=== PATIENT | female | born 1970 | race Caucasian/White ===

== ENCOUNTER → 2018-07-19 17:43 | Outpatient (CLI) | payer OTHER, SELFPAY | PROVIDERS: Family Provider Family Medicine; PCP Family Medicine; Referring Provider Family Medicine; Visit Provider Family Medicine | DX: N39.0 Urinary tract infection, site not specified (principal) | CPT/HCPCS: 87086; 87088; 87186 ==

== ENCOUNTER → 2019-02-11 08:25 | Outpatient (CLI) | payer OTHER, SELFPAY ==
--- NOTE | 2019-02-11 08:28 | BI_ITS ---
MAMMOGRAPHY - BILATERAL SCREENING REASON FOR EXAM: Female, 48 years old. Routine annual screening examination. PERTINENT HISTORY: Non-contributory. TECHNIQUE: Digital bilateral breast dakota (3D mammographic acquisition) in the CC and MLO projections. 2-D mediolateral oblique (MLO) and craniocaudad (CC) views of both breasts were obtained. CAD: Full Field Digital Mammography with Computer Added Detection was performed. COMPARISON: Comparison is made with prior outside examination dated August 31, 2017. FINDINGS: Breast Composition: The breasts are extremely dense, which lowers the sensitivity of mammography. There are no dominant masses or suspicious calcifications. No other significant abnormalities are identified. There has been no significant change since the prior study. BI/SCREEN MAMM (CAD) W/DAKOTA BILAT IMPRESSION: Stable bilateral screening mammogram. Yearly follow-up mammogram recommended. (A) ASSESSMENT CATEGORY: BIRADS Category 1: Negative. A letter regarding these results will be sent to the patient by the facility within 30 days. Approximately 10% of breast cancers are not detected by mammography. A normal mammogram should not delay biopsy of a clinically suspicious abnormality. [id number] Electronically Signed: Luis Eduardo Guy, at 11:19 EDT , Service support ,
[2019-02-14 15:38] LABS: HPV APTIMA, High Risk Negative (Negative)
== END ==
PROVIDERS: Family Provider Family Medicine; PCP Family Medicine; Referring Provider Nurse Practitioner Women's Health; Visit Provider Nurse Practitioner Women's Health
DX: Z12.31 Encounter for screening mammogram for malignant neoplasm of breast (principal); Z12.4 Encounter for screening for malignant neoplasm of cervix
CPT/HCPCS: 77063; 77067; 87624; 88175; G0145

== ENCOUNTER → 2021-01-03 10:31 | Outpatient (CLI) | payer OTHER, SELFPAY ==
[2021-01-03 10:45] LABS: Mucous, Urine 0 SEEN /hpf (<or=2+)
[2021-01-03 10:48] LABS: Color, Urine Red (Yellow); Glucose, Dipstick Normal (Normal); Ketone-Dipstick Negative (Negative); Leukocyte Esterase-Dipstick 100 /ul (Negative); Nitrite-Dipstick Negative (Negative); Occult Blood-Urine 250 /ul (Negative); Protein-Dipstick 100 mg/dl (Negative); Specific Gravity, Urine 1.015 (1.002-1.030); Urine Bilirubin Dipstick Negative (Negative); Urine Clarity Clear (Clear); Urine Urobilinogen Normal (Normal)
[2021-01-03 11:01] LABS: Bacteria 1+ /hpf (None Seen); Red Blood Cells-Urine > 100 SEEN /hpf (0-5); Squamous Epithelial Cells - UA 0-5 SEEN /hpf (5-10); White Blood Cells 5-10 SEEN /hpf (0-5)
== END ==
PROVIDERS: PCP Family Medicine; Referring Provider Physician Assistant Surgical; Visit Provider Physician Assistant Surgical
DX: N39.0 Urinary tract infection, site not specified (principal)
CPT/HCPCS: 81001; 87086

== ENCOUNTER → 2022-02-16 | Outpatient (CLI) | payer BC, SELFPAY ==
[2022-02-16 12:24] LABS: Anion Gap 8 (5-15); BUN 13 mg/dL (7-18); BUN/Creat Ratio 15.4 RATIO (10-20); Calcium,Total 9.5 mg/dL (8.5-10.1); Chloride 104 mmol/L (98-107); Cholesterol 164 mg/dL (200); Creatinine, Serum 0.84 mg/dL (0.55-1.02); EST Glomerular Filtration Rate 75 mL/min (>60); Est Glom Filt Rate - Afr Amer 91 mL/min (>60); Glucose 83 mg/dL (74-106); High Density Lipoprotein 99 mg/dL; Potassium 3.7 mmol/L (3.5-5.1); Sodium Level 140 mmol/L (136-145); Triglycerides 39 mg/dL; Very Low Density Lipoprotein 8 mg/dL (5-40)
== END | disposition home or self-care (01) ==
LOC: MFPLAB 09:42
PROVIDERS: PCP Nurse Practitioner Family; Referring Provider Nurse Practitioner Family; Visit Provider Nurse Practitioner Family
DX: Z13.1 Encounter for screening for diabetes mellitus (principal); Z13.220 Encounter for screening for lipoid disorders
CPT/HCPCS: 36415; 80048; 80061

== ENCOUNTER → 2022-02-22 | Outpatient (CLI) | payer BC, SELFPAY ==
--- NOTE | 2022-02-22 12:29 | BI_ITS ---
MAMMOGRAPHY - BILATERAL SCREENING REASON FOR EXAM: Female, 51 years old. Routine annual screening examination. PERTINENT HISTORY: Non-contributory. TECHNIQUE: Digital bilateral breast dakota (3D mammographic acquisition) in the CC and MLO projections. 2-D mediolateral oblique (MLO) and craniocaudad (CC) views of both breasts were obtained. CAD: Full Field Digital Mammography with Computer Added Detection was performed. COMPARISON: Comparison is made with prior study dated 02/11/2019. FINDINGS: Breast Composition: The breasts are extremely dense, which lowers the sensitivity of mammography. There are no dominant masses or suspicious calcifications. No other significant abnormalities are identified. There has been no significant change since the prior study. BI/SCRN MAMM (CAD)W/DAKOTA BILAT IMPRESSION: Stable bilateral screening mammogram. Yearly follow-up mammogram recommended. (A) ASSESSMENT CATEGORY: BIRADS Category 1: Negative. A letter regarding these results will be sent to the patient by the facility within 30 days. Approximately 10% of breast cancers are not detected by mammography. A normal mammogram should not delay biopsy of a clinically suspicious abnormality. [id number] Electronically Signed: Luis Eduardo Guy MD at 13:31 EDT ,
== END | disposition home or self-care (01) ==
LOC: OPBI 12:28
PROVIDERS: PCP Nurse Practitioner Family; Visit Provider Nurse Practitioner Women's Health
DX: Z12.31 Encounter for screening mammogram for malignant neoplasm of breast (principal)
CPT/HCPCS: 77063; 77067

== ENCOUNTER → 2022-03-15 | Outpatient (CLI) | payer BC, SELFPAY ==
[2022-03-15 18:30] LABS: Thyroid Stim Hormone (TSH) 2.17 uIU/mL (0.358-3.74)
== END | disposition home or self-care (01) ==
LOC: MFPLAB 16:38
PROVIDERS: PCP Family Medicine; Referring Provider Family Medicine; Visit Provider Family Medicine
DX: E03.9 Hypothyroidism, unspecified (principal)
CPT/HCPCS: 36415; 84443

== ENCOUNTER 2022-03-17 05:52 | Day surgery (SDC) | payer BC, SELFPAY ==
[2022-03-17] VITALS (10 sets, daily range): BP systolic 89–108; BP diastolic 52–76; PULSE 51–60; RESP 16; TEMP 36–36.7; O2SAT 4–100; BMI 10.3
--- NOTE | 2022-03-17 06:17 | HP.PCM_ITS ---
[facility] - General General Date of Service: 03/17/22 Chief Complaint: Screening for intestinal cancer [facility] Narrative CHANTAL TRACY, is a 51 F who presents who presents for screening colonoscopy today. She has not had a previous 1. She has no chronic health conditions. She presents via open access. [facility] Medical History (Updated 03/14/22 @ 13:00 by Ivania Bennett) Non-smoker Post-menopausal Thyroid disease Wears glasses Home Medications biotin 5 mg capsule 5 mg PO QDAY 10/17/17 [History Last Taken Unknown] multivitamin 1 cap PO QAM 10/17/17 [History Last Taken Unknown] ascorbate calcium (vitamin C) 500 mg tablet 500 mg PO DAILY 02/11/19 [History Last Taken Unknown] cholecalciferol (vitamin D3) 25 mcg (1,000 unit) capsule 1,000 unit PO DAILY 02/11/19 [History Last Taken Unknown] cyclosporine 0.05 % eye drops in a dropperette (Restasis) 1 drp ophthalmic (eye) Q12H 02/11/19 [History Last Taken Unknown] artificial tears(hypromellose) 0.3 % eye gel (Systane Gel) 1 drp ophthalmic (eye) Q4H PRN Dry Eyes 02/16/22 [History Last Taken Unknown] calcium carbonate 500 mg calcium (1,250 mg) chewable tablet (Calcium 500) 500 mg PO DAILY 02/16/22 [History Last Taken Unknown] hydroeyes 1 ea PO DAILY 02/16/22 [History Last Taken Unknown] polyethylene glycol 400 0.25 % eye gel drops (Blink Gel Tears) 1 drp ophthalmic (eye) DAILY 02/16/22 [History Last Taken Unknown] Allergy/AdvReac Type Severity Reaction Status Date / Time No Known Allergies Allergy Verified 02/16/22 13:38 Family History (Updated 02/16/22 @ 13:41 by Diana Morrison) Father Diabetes CVA (cerebral vascular accident) Grandmother Diabetes Surgical History (Updated 03/14/22 @ 13:00 by Ivania Bennett) H/O thyroidectomy History of cataract surgery Social History Smoking Status: Never smoker alcohol intake: never substance use type: does not use caffeine: No what type of physical activity do you participate in: none seatbelt use: always do you feel safe at home: Yes additional social history: - Marjan Patient is at home ROS Constitutional Constitutional: Reports systems reviewed and no addt'l complaints, except as documented Cardiovascular Cardiovascular: Denies chest pain Respiratory/Chest Respiratory/Chest: Denies shortness of breath at rest Gastrointestinal Gastrointestinal: Denies abdominal pain, change in bowel habits, hematochezia or melena Physical Exam Const alert, oriented x3 and no apparent distress General Appearance: cooperative and comfortable Eyes General Eye: normal appearance of both eyes Neck General: normal visual inspection Chest inspection of chest normal Resp Effort and Inspection: able to speak in complete sentences and symmetric chest movement Auscultation: clear to auscultation bilaterally Cardio regular rate and regular rhythm GI soft to palpation, non-tender and non-distended Extremity no calf tenderness Neuro oriented x3 Psych thought process normal Assessment & Plan Assessment/Plan (1) Encounter for screening for malignant neoplasm of colon: PLAN: Plan I recommended the patient a screening colonoscopy with possible biopsy or polypectomy as indicated. She is aware of the technique, benefit, risks, alternatives. She has had an opportunity to ask and have questions answered. As noted she presents via open access. We will proceed as noted. Lorenzo Spears M.D., F.A.C.S.
[2022-03-17] MEDS: Lactated Ringers 1,000 ML 15 ML IV (06:45)
[2022-03-17] MEDS: Midazolam 5 MG/ML Syringe (07:25)
--- NOTE | 2022-03-17 07:39 | OP.CCLET_ITS ---
03/17/2022 Mario Alberto Donohue Re : Colonoscopy procedure for Darlyn Farmer Dear Emile This procedure was performed on Thursday, March 17, 2022. My impressions and recommendations are as follows: Impressions : - The entire examined colon is normal. - No specimens collected. Recommendations : - Discharge patient to home. - Resume previous diet. - Continue present medications. - Repeat colonoscopy in 10 years for screening purposes. My findings are described in the full procedure note, which is enclosed. If I can be of further assistance, please feel free to contact me at Doctor phone number(s): Work: . Sincerely, Lorenzo Spears MD 03/17/2022 7:38:29 AM This report has been signed electronically.
--- NOTE | 2022-03-17 07:39 | OP.COLON_ITS ---
Patient Name: Darlyn Farmer Procedure Date: 03/17/2022 7:10 AM Date of : 1970 Age: 51 Procedure: Colonoscopy Indications: Screening for colorectal malignant neoplasm Providers: Lorenzo Spears MD Medicines: Midazolam 2.5 mg IV, Meperidine 75 mg IV Patient Profile: Last Colonoscopy: none. The patient's first colonoscopy is today. Complications: No immediate complications. Procedure: Pre-Anesthesia Assessment: - Prior to the procedure, a History and Physical was performed, and patient medications and allergies were reviewed. The patient's tolerance of previous anesthesia was also reviewed. The risks and benefits of the procedure and the sedation options and risks were discussed with the patient. All questions were answered, and informed consent was obtained. Prior Anticoagulants: The patient has taken no previous anticoagulant or antiplatelet agents. ASA Grade Assessment: II - A patient with mild systemic disease. After reviewing the risks and benefits, the patient was deemed in satisfactory condition to undergo the procedure. After I obtained informed consent, the scope was passed under direct vision. Throughout the procedure, the patient's blood pressure, pulse, and oxygen saturations were monitored continuously. The colonoscope was introduced through the anus and advanced to the cecum, identified by appendiceal orifice and ileocecal valve. The colonoscopy was performed without difficulty. The patient tolerated the procedure well. The quality of the bowel preparation was good. The ileocecal valve and the appendiceal orifice were photographed. Moderate Sedation: Moderate (conscious) sedation was personally administered by the endoscopist. The following parameters were monitored: oxygen saturation, heart rate, blood pressure, and response to care. Total physician intraservice time was 15 minutes. Scope In: 7:24:52 AM Scope Withdrawal Time 0 hours 6 minutes 41 seconds Scope Out: 7:34:49 AM Total Procedure Duration Time 0 hours 9 minutes 57 seconds Findings: The perianal and digital rectal examinations were normal. The colon (entire examined portion) appeared normal. Impression: - The entire examined colon is normal. - No specimens collected. Recommendation: - Discharge patient to home. - Resume previous diet. - Continue present medications. - Repeat colonoscopy in 10 years for screening purposes. Procedure Code(s): --- Professional --- 51082, Colonoscopy, flexible; diagnostic, including collection of specimen(s) by brushing or washing, when performed (separate procedure) 09373, 59, Moderate sedation services provided by the same physician or other qualified health floor care technician performing the diagnostic or therapeutic service that the sedation supports, requiring the presence of an independent trained observer to assist in the monitoring of the patient's level of consciousness and physiological status; initial 15 minutes of intraservice time, patient age 5 years or older Diagnosis Code(s): --- Professional --- Z12.11, Encounter for screening for malignant neoplasm of colon CPT copyright 2017 [employer]. All rights reserved. The codes documented in this report are preliminary and upon technical account representative review may be revised to meet current compliance requirements. Lorenzo Spears MD 03/17/2022 7:38:29 AM This report has been signed electronically. Number of Addenda: 0 Note Initiated On: 03/17/2022 7:10 AM
== END 2022-03-17 08:19 | disposition home or self-care (01) ==
LOC: EN 05:59 → AC 06:00
PROVIDERS: PCP Family Medicine; Referring Provider Family Medicine; Visit Provider Surgery
PROC: 0DJD8ZZ Inspection of Lower Intestinal Tract, Via Natural or Artificial Opening Endoscopic (ICD-10-PCS; CPT 45378; principal; 2022-03-17 06:55)
DX: Z12.11 Encounter for screening for malignant neoplasm of colon (principal)
CPT/HCPCS: 45378; 99152; 99153; J7120

== ENCOUNTER → 2023-07-24 | Outpatient (CLI) | payer BC, SELFPAY ==
--- NOTE | 2023-07-24 08:28 | BI_ITS ---
MAMMOGRAPHY - BILATERAL SCREENING REASON FOR EXAM: Female, 53 years old. Routine annual screening examination. PERTINENT HISTORY: Non-contributory. TECHNIQUE: Digital bilateral breast dakota (3D mammographic acquisition) in the CC and MLO projections. 2-D mediolateral oblique (MLO) and craniocaudad (CC) views of both breasts were obtained. CAD: Full Field Digital Mammography with Computer Added Detection was performed. COMPARISON: Comparison is made with prior study dated February 22, 2022 and February 11, 2019. FINDINGS: Breast Composition: The breasts are extremely dense, which lowers the sensitivity of mammography. There are no dominant masses or suspicious calcifications. No other significant abnormalities are identified. There has been no significant change since the prior study. BI/SCRN MAMM (CAD)W/DAKOTA BILAT IMPRESSION: Stable bilateral screening mammogram. Yearly follow-up mammogram recommended. (A) ASSESSMENT CATEGORY: BIRADS Category 1: Negative. A letter regarding these results will be sent to the patient by the facility within 30 days. Approximately 10% of breast cancers are not detected by mammography. A normal mammogram should not delay biopsy of a clinically suspicious abnormality. [id number] Electronically Signed: Luis Eduardo Guy MD at 9:46 EDT ,
== END | disposition home or self-care (01) ==
LOC: OPBI 08:27
PROVIDERS: PCP Family Medicine; Referring Provider Nurse Practitioner Women's Health; Visit Provider Nurse Practitioner Women's Health
DX: Z12.31 Encounter for screening mammogram for malignant neoplasm of breast (principal)
CPT/HCPCS: 77063; 77067

== ENCOUNTER → 2023-08-08 | Outpatient (CLI) | payer BC, SELFPAY ==
[2023-08-08 17:40] LABS: Absolute Lymphocyte Count 2.76 X10^3/uL (0.83-4.51); Absolute Neutrophil Count 3.2 X10^3/uL (2.0-7.7); Basophil# 0.07 X10^3/uL; Basophil% 1.1 % (0-1); Eosinophil# 0.18 X10^3/uL; Eosinophils% 2.7 % (0-5); Lymphocyte # 2.76 X10^3/ul (0.83-4.51); Lymphocyte % 41.8 % (19-41); Mean Corp Hgb Conc 31.6 g/dL (32-36); Mean Corpuscular Hgb 28.1 pg (27.0-32.0); Mean Platelet Vol. 10.5 fl (6.2-12.0); Monocyte# 0.34 X10^3/uL; Monocyte% 5.2 % (0-10); NRBC Flagged by Analyzer 0 % (0-5); Neutrophil # 3.23 X10^3/uL (2.7-7.7); Neutrophil % 48.9 % (47-70); Platelet Count 280 K/mm3 (150-450); RBC Distribution Width CV 13.3 % (11.6-14.6); RBC Distribution Width SD 43.9 fl (35.1-43.9); Red Blood Count 4.27 M/mm3 (4.2-5.4); White Blood Count 6.6 K/mm3 (4.4-11.0)
[2023-08-08 17:57] LABS: ALB/GLOB Ratio 1.3 RATIO (0.9-2.4); AST(SGOT) 13 U/L (15-37); Alanine Aminotransfer ALT/SGPT 17 U/L (13-56); Alkaline Phosphatase 60 U/L (45-117); Anion Gap 5 (5-15); BUN 11 mg/dL (7-18); BUN/Creat Ratio 11.7 RATIO (10-20); Calcium,Total 9.4 mg/dL (8.5-10.1); Chloride 106 mmol/L (98-107); Cholesterol 175 mg/dL (200); Creatinine, Serum 0.94 mg/dL (0.55-1.02); EST Glomerular Filtration Rate 66 mL/min (>60); Est Glom Filt Rate - Afr Amer 80 mL/min (>60); Glucose 91 mg/dL (74-106); High Density Lipoprotein 105 mg/dL; Potassium 3.4 mmol/L (3.5-5.1); Sodium Level 140 mmol/L (136-145); Triglycerides 49 mg/dL; Very Low Density Lipoprotein 10 mg/dL (5-40)
== END | disposition home or self-care (01) ==
LOC: MFPLAB 16:46
PROVIDERS: PCP Family Medicine; Visit Provider Family Medicine
DX: Z01.419 Encounter for gynecological examination (general) (routine) without abnormal findings (principal)
CPT/HCPCS: 36415; 80053; 80061; 85025

== ENCOUNTER 2024-03-10 18:26 | Emergency (ER) | payer BC, SELFPAY ==
[2024-03-10 18:28] VITALS: BP 104/71; PULSE 75; RESP 18; TEMP 36.3; O2SAT 100; BMI 22.6
[2024-03-10 18:57] LABS: Mucous, Urine 0 SEEN /hpf (<or=2+); Squamous Epithelial Cells - UA 0 SEEN /hpf (5-10)
[2024-03-10 19:05] LABS: Glucose, Dipstick Normal (Normal); Ketone-Dipstick Negative (Negative); Leukocyte Esterase-Dipstick 100 /ul (Negative); Nitrite-Dipstick Negative (Negative); Occult Blood-Urine 250 /ul (Negative); Protein-Dipstick 100 mg/dl (Negative); Urine Bilirubin Dipstick Negative (Negative); Urine Clarity Sl. Cloudy (Clear); Urine Urobilinogen Normal (Normal); Urine pH 6.5 (5.0 - 8.0)
[2024-03-10 19:08] LABS: Color, Urine SEE COMMENT BELOW (Yellow)
[2024-03-10 19:15] LABS: Bacteria 2+ /hpf (None Seen); Internal QC Validated? YES +Cl - CLEAR BKGD; Pregnancy, Urine Negative Negative; Red Blood Cells-Urine 5-10 SEEN /hpf (0-5); White Blood Cells 0-5 SEEN /hpf (0-5)
--- NOTE | 2024-03-10 19:51 | EX.ED.DYSGE1 ---
HPI <BECKIE Reyna - Last Filed: 03/10/24 20:56> History of Present Illness Chief Complaint: Complaint Narrative Narrative: Patient presenting today due to hematuria that started today. She reports that she has had pain across her lower back over the past month, she saw her PCP and he put her on a steroid burst which seem to give some relief, she also saw a chiropractor which did not seem to help. She is supposed to begin physical therapy on Sunday. She reports that her low back pain is worse with sitting and she recently has developed pelvic pain and pressure. She does have a history of UTIs. She denies any history of kidney stones. She has not had any fevers, chills, dysuria, abdominal pain, nausea, or vomiting. [facility] <BECKIE Reyna - Last Filed: 03/10/24 20:56> [facility] Medical History Multinodular goiter Cataract Wears glasses Post-menopausal Non-smoker Thyroid disease Home Medications ?Medication ?Instructions ?Recorded ?Last Taken ?Type biotin 5 mg capsule 5 mg PO QDAY 10/17/17 Unknown History multivitamin 1 cap PO QAM 10/17/17 Unknown History ascorbate calcium (vitamin C) 500 500 mg PO DAILY 02/11/19 Unknown History mg tablet cholecalciferol (vitamin D3) 25 1,000 unit PO DAILY 02/11/19 Unknown History mcg (1,000 unit) capsule cyclosporine 0.05 % eye drops in a 1 drp ophthalmic (eye) Q12H 02/11/19 Unknown History dropperette (Restasis) artificial tears(hypromellose) 0.3 1 drp ophthalmic (eye) Q4H PRN Dry 02/16/22 Unknown History % eye gel (Systane Gel) Eyes calcium carbonate (Calcium 500) 500 mg PO DAILY 02/16/22 Unknown History hydroeyes 1 ea PO DAILY 02/16/22 Unknown History polyethylene glycol 400 0.25 % eye 1 drp ophthalmic (eye) DAILY 02/16/22 Unknown History gel drops (Blink Gel Tears) estradiol 0.01% (0.1 mg/gram) See Rx Instructions vaginal 07/24/23 Unknown Rx vaginal cream .COMPLEX #42.5 grams cephalexin 500 mg capsule 500 mg PO Q6 7 days #28 CAPSULES 06/17/24 Unknown Rx Allergy/AdvReac Type Severity Reaction Status Date / Time No Known Allergies Allergy Verified 03/10/24 18:28 Family History Father Diabetes CVA (cerebral vascular accident) Grandmother Diabetes Other Arthritis Bowel disease Thyroid disorder Surgical History History of cataract surgery H/O thyroidectomy Social History Smoking Status: Never smoker alcohol intake: never substance use type: does not use caffeine: No what type of physical activity do you participate in: none seatbelt use: always do you feel safe at home: Yes additional social history: - Jonathan-Sangeetha Patient is at home ROS <BECKIE Reyna - Last Filed: 03/10/24 20:56> ROS ED Constitutional Constitutional ED: Denies chills or fever(s) Cardiovascular Cardiovascular: Denies chest pain Respiratory/Chest Respiratory/Chest: Denies cough or dyspnea Gastrointestinal Gastrointestinal: Denies abdominal pain, nausea or vomiting Genitourinary Genitourinary ED: Reports hematuria; Denies dysuria or urinary urgency Musculoskeletal Musculoskeletal: Reports back pain Integumentary Denies rash Neurologic Neurologic: Denies paresthesias or weakness EXAM <BECKIE Reyna - Last Filed: 03/10/24 20:56> Physical Exam Const Vital Signs: 03/10/24 18:28 03/10/24 20:37 03/10/24 20:40 Temperature 97.4 F L 97.8 F Temperature Source Temporal Pulse Rate 75 63 63 Respiratory Rate 18 16 Blood Pressure 104/71 99/75 Blood Pressure Mean 82 83 Pulse Ox 100 94 Oxygen Delivery Method Room Air Positive well nourished, well developed and no apparent distress General Appearance ED: well developed HEENT Reports normocephalic and head/scalp atraumatic Mouth ED: Yes moist mucous membranes normal Eyes PERRL and EOMs intact bilaterally Neck full ROM and supple Chest Wall inspection of chest normal Resp normal respiratory effort and clear to auscultation bilaterally Cardio regular rate and regular rhythm GI soft to palpation, non-tender, non-distended and no masses Back/Spine normal ROM and normal to inspection General Back: Negative for CVA tenderness Thoracic Spine / Upper Back: Negative for thoracic spinal tenderness or paraspinal muscle tenderness Lumbar Spine / Lower Back: Negative for lumbar spinal tenderness Extremity normal to inspection and full ROM Neuro oriented x3, CN's II-XII intact bilaterally, moves all extremities, no focal motor deficits and no sensory deficits noted Sensorium / Orientation: awake and alert Psych mental status grossly normal and thought process normal Skin no rashes or lesions noted and no wounds <Dr. Ganesh Villanueva, DO - Last Filed: 03/10/24 20:26> Physical Exam Const Vital Signs: 03/10/24 18:28 03/10/24 20:37 03/10/24 20:40 Temperature 97.4 F L 97.8 F Temperature Source Temporal Pulse Rate 75 63 63 Respiratory Rate 18 16 Blood Pressure 104/71 99/75 Blood Pressure Mean 82 83 Pulse Ox 100 94 Oxygen Delivery Method Room Air MDM <Greta Perkins PA - Last Filed: 03/10/24 20:56> [facility] Narrative Medical decision making narrative: Patient presenting due to hematuria that started today. She is well-appearing and in no acute distress. She has been having low back pain over the past month which she has seen her PCP for, she is supposed to start physical therapy on Sunday. She has had UTIs in the past, UA obtained here and is positive for UTI. Examination is not consistent with a kidney stone. She was given a dose of Keflex here and will be given a prescription for this for home, urinary culture obtained. She is to follow-up with her PCP and will be discharged home in stable condition. Lab Data Attestation: I reviewed the patient's lab results. Labs: Laboratory Results - last 24 hr 03/10/24 18:50 Urine Color SEE COMMENT BELOW Urine Clarity Sl. Cloudy Urine pH 6.5 Ur Specific [place] 1.010 Urine Protein 100 H Urine Glucose (UA) Normal Urine Ketones Negative Urine Occult Blood 250 H Urine Nitrite Negative Urine Bilirubin Negative Urine Urobilinogen Normal Ur Leukocyte Esterase 100 H Urine RBC 5-10 SEEN Urine WBC 0-5 SEEN Ur Squamous Epith Cells 0 SEEN Urine Bacteria 2+ Urine Mucus 0 SEEN Urine Test Negative <Dr. Ganesh Villanueva, - Last Filed: 03/10/24 20:26> [facility] Lab Data Labs: Laboratory Results - last 24 hr 03/10/24 18:50 Urine Color SEE COMMENT BELOW Urine Clarity Sl. Cloudy Urine pH 6.5 Ur Specific [place] 1.010 Urine Protein 100 H Urine Glucose (UA) Normal Urine Ketones Negative Urine Occult Blood 250 H Urine Nitrite Negative Urine Bilirubin Negative Urine Urobilinogen Normal Ur Leukocyte Esterase 100 H Urine RBC 5-10 SEEN Urine WBC 0-5 SEEN Ur Squamous Epith Cells 0 SEEN Urine Bacteria 2+ Urine Mucus 0 SEEN Urine Test Negative Treatment and Re-Evaluation :: I have personally performed a face to face assessment of the patient and have reviewed the CHANO Note. I performed a substantive portion of the visit including all aspects of the following. My campos findings include: History: Patient presents with back pain that began approximately 1 month ago. Patient states that over the past couple days she started having some hematuria. Patient denies any fevers or chills. Patient states she started having some lower abdominal burning and cramping. Patient states it is worse when she sits up. Patient states nothing seems to help with it. Patient states it has been waxing and waning. Patient denies any nausea or vomiting. Patient denies any urinary frequency. Exam: Vital signs are stable. Patient is afebrile. Patient is in no acute distress. Oral mucosa is pink and moist. Neck is supple. Trachea is midline. There is no JVD. Heart was regular rate and rhythm. Lungs are clear and equal bilaterally. Abdomen is soft. Bowel sounds are normal. There is no tenderness. There is no guarding noted. Cranial nerves II through XII are intact. There are no focal motor or sensory deficits noted. Medical Decision Making: Differential diagnosis includes urinary tract infection, musculoskeletal back pain, and pyelonephritis. Urinalysis will be obtained to assess for urinary tract infection and hematuria. Urinalysis was obtained. There is occult blood at 250 with 5-10 red blood cells. Leukocyte esterase was 100 with 0-5 white blood cells. There is 2+ bacteria. Urine culture was ordered. Patient was given a prescription for Keflex. Patient was instructed to drink plenty of fluids. Patient was instructed to follow-up with her primary care physician in 5 to 7 days for further evaluation. Patient understood and was agreeable with the plan. All questions were answered. Discharge Plan Triage Chief Complaint: Complaint ED Midlevel Provider: Greta Perkins ED Provider: Ganesh Villanueva Dx/Rx/DC Orders Clinical Impression: UTI (urinary tract infection), Chronic low back pain Instructions: Urinary Tract Infections in Women Prescriptions: New cephalexin 500 mg capsule 500 mg PO Q6 7 Days Qty: 28 0RF No Action multivitamin capsule 1 cap PO QAM biotin 5 mg capsule 5 mg PO QDAY cholecalciferol (vitamin D3) 1,000 unit capsule 1,000 unit PO DAILY ascorbate calcium (vitamin C) 500 mg tablet 500 mg PO DAILY Restasis 0.05 % dropperette 1 drp OPHTHALMIC Q12H calcium carbonate [Calcium 500] 500 mg calcium (1,250 mg) tablet,chewable 500 mg PO DAILY Systane Gel 0.3 % gel 1 drp ophthalmic (eye) Q4H PRN (Reason: Dry Eyes) Blink Gel Tears 0.25 % drops,gel 1 drp ophthalmic (eye) DAILY hydroeyes 1 ea PO DAILY estradiol 0.01 % (0.1 mg/gram) cream See Rx Instructions vaginal .COMPLEX Qty: 42.5 2RF Rx Instructions: small amount as directed vaginal every day X 4 weeks then twice a week; Primary Care Provider: Tucker Baum Referrals: Tucker Baum MD [Primary Care Provider] - 5-7 Days Activity Restrictions/Additional Instructions: Follow-up with your PCP and return for any worsening of your symptoms. Print Language: German Disposition Disposition: Home, Self Care Discharge Date/Time: 03/10/24 20:48
[2024-03-10 20:37] VITALS: BP 99/75; PULSE 63; RESP 16; TEMP 36.6; O2SAT 94
[2024-03-10 20:40] VITALS: PULSE 63
[2024-03-10] MEDS: Cephalexin 250 MG Capsule 500 MG PO (20:41)
== END 2024-03-10 20:48 | disposition home or self-care (01) ==
PROVIDERS: Emergency Provider Emergency Medicine; PCP Family Medicine; Visit Provider Emergency Medicine
DX: N39.0 Urinary tract infection, site not specified (principal); M54.50 Low back pain, unspecified; G89.29 Other chronic pain
CPT/HCPCS: 81001; 81025; 87077; 87086; 87088; 99282

== ENCOUNTER → 2024-03-18 | Outpatient (CLI) | payer BC, SELFPAY ==
--- NOTE | 2024-03-18 15:56 | CYSPIN_PTH ---
PATIENT: CHANTAL TRACY LOC: [facility] U#:[id number] AGE/SX: 53/F ROOM: RE03/18/[address]: Dr. Tucker Baum MD : 1970 BED: DIS: 03/18/2024 SPEC #: [id number] RECD: 03/19/24 10:09 STATUS: CHIKI HODGES #: [id number] GIULIANA: 03/18/24 15:[address]: Tucker Baum DEPT: CYTOLOGY RECD BY: Mariia Uribe Tissues: Urine Procedures: Pap Stain (control) Special Stain Group II Cytospin Fluid HEADER OPERATION: Not noted PRE-OP DIAGNOSIS: Hematuria TISSUE SUBMITTED: Urine for cytology DIAGNOSIS CYTOLOGY Urine for cytology (cytospin): Negative for high grade urothelial carcinoma ([facility]GUC), Shari system II. See comment. ANDREW/ 03/19/2024 COMMENT Clinical correlation and appropriate follow up are necessary. The Shari System for urine cytology diagnostic categorization was used in the evaluation of this case. CYTOLOGY STUDY Slides are reviewed. CYTOLOGY GROSS Received is 60 ml of hazy-colorless fluid labeled with the patient's name and and designated per the requisition as urine. Submitted for cytology preparation. 03/19/2024 TC:4 CPT: 84005
[2024-03-18 15:59] LABS: Bacteria 0 SEEN /hpf (None Seen); Cytology, Body Fluid / CSF SEE PATHOLOGY REPORT; Mucous, Urine 0 SEEN /hpf (<or=2+); Red Blood Cells-Urine 0 SEEN /hpf (0-5); Squamous Epithelial Cells - UA 0 SEEN /hpf (5-10); White Blood Cells 0 SEEN /hpf (0-5)
[2024-03-18 18:29] LABS: Color, Urine Straw (Yellow); Glucose, Dipstick Normal (Normal); Ketone-Dipstick Negative (Negative); Leukocyte Esterase-Dipstick Negative /ul (Negative); Nitrite-Dipstick Negative (Negative); Occult Blood-Urine Negative /ul (Negative); Protein-Dipstick Negative (Negative); Specific Gravity, Urine 1.005 (1.002-1.030); Urine Bilirubin Dipstick Negative (Negative); Urine Clarity Clear (Clear); Urine Urobilinogen Normal (Normal)
== END | disposition home or self-care (01) ==
LOC: MFPLAB 15:55
PROVIDERS: PCP Family Medicine; Visit Provider Family Medicine
DX: R31.9 Hematuria, unspecified (principal)
CPT/HCPCS: 81001; 88108; 88313

== ENCOUNTER → 2024-03-31 | Outpatient (CLI) | payer BC, SELFPAY ==
--- NOTE | 2024-03-31 17:53 | CT_ITS ---
STUDY: CT ABDOMEN AND PELVIS WITH AND WITHOUT CONTRAST REASON FOR EXAM: Female, 53 years old. One episode of hematuria. Left flank pain. RADIATION DOSAGE (If Supplied By Facility): CTDIvol = ( 13.6 ) mGy, DLP = ( 1621.68 ) mGycm TECHNIQUE: Transaxial images were obtained from the dome of the diaphragm to the symphysis pubis without oral contrast. isovue 300 80 ml was administered. Sagittal and coronal images were reconstructed. Individualized dose optimization techniques were used for this CT. COMPARISON: None. FINDINGS: Minimal linear scarring at the left lung base. The visualized portions of the heart are within normal limits. There is hepatomegaly with diffuse hepatic enlargement. Normal gallbladder and extrahepatic biliary system. Normal spleen. Normal pancreas. Normal bilateral adrenal glands. There is a 7.1 mm fat-containing nodule in the lateral midportion of the right kidney suggestive of an angiomyolipoma. Normal left kidney. Normal visualized stomach. Normal small intestine. There are scattered colonic diverticula consistent with diverticulosis. The appendix is visualized and appears normal. Normal abdominal aorta. Normal inferior vena cava. Normal retroperitoneum. Normal urinary bladder. Calcified fibroid uterus. Prominence of the left gonadal vein. Normal abdominal wall. Normal osseous structures. CT/CT Abd/Pelvis W/WO Contrast IMPRESSION: Hepatomegaly. Scattered sigmoid diverticula. Calcified fibroid uterus. Prominence of the left gonadal vein. Small right renal angiomyolipoma. Electronically Signed: Luis Eduardo Guy MD at 13:09 EDT ,
== END | disposition home or self-care (01) ==
PROVIDERS: PCP Family Medicine; Referring Provider Family Medicine; Visit Provider Family Medicine
DX: R31.9 Hematuria, unspecified (principal)
CPT/HCPCS: 74178; Q9967

== ENCOUNTER → 2024-04-02 | Outpatient (CLI) | payer BC, SELFPAY ==
[2024-04-02 18:11] LABS: ALB/GLOB Ratio 1.2 RATIO (0.9-2.4); AST(SGOT) 15 U/L (15-37); Alanine Aminotransfer ALT/SGPT 18 U/L (13-56); Albumin, Serum 3.7 g/dL (3.2-5.0); Alkaline Phosphatase 57 U/L (45-117); Anion Gap 5 (5-15); BUN 12 mg/dL (7-18); BUN/Creat Ratio 15.7 RATIO (10-20); Calcium,Total 9.3 mg/dL (8.5-10.1); Chloride 106 mmol/L (98-107); Creatinine, Serum 0.76 mg/dL (0.55-1.02); EST Glomerular Filtration Rate 84 mL/min (>60); Est Glom Filt Rate - Afr Amer 101 mL/min (>60); Glucose 72 mg/dL (74-106); Potassium 3.8 mmol/L (3.5-5.1); Protein, Total 6.7 g/dL (6.4-8.2); Sodium Level 140 mmol/L (136-145)
== END | disposition home or self-care (01) ==
LOC: MFPLAB 14:07
PROVIDERS: PCP Family Medicine; Visit Provider Family Medicine
DX: B35.1 Tinea unguium (principal)
CPT/HCPCS: 36415; 80053

== ENCOUNTER → 2024-04-17 | Outpatient (CLI) | payer BC, SELFPAY ==
--- NOTE | 2024-04-17 13:12 | US_ITS ---
STUDY: ULTRASOUND OF THE FEMALE PELVIS - COMPLETE REASON FOR EXAM: Female, [address] scan, size of fibroid LMP: 09/24/2015 TECHNIQUE: Transabdominal and Transvaginal TECHNICAL QUALITY: Adequate. COMPARISON: CT 03/31/2024 FINDINGS: The uterus is anteverted and is in a midline position. The uterus measures 7.0 x 4.4 x 3.2 cm. Normal uterine cervix. The endometrium measures 4 mm in thickness, and is hypoechoic. There is no demonstrated endometrial mass. There is no demonstrated myometrial mass. I.U.D. - The patient does not have an I.U.D. prominent parametrial veins suggestive of pelvic congestion syndrome. The right ovary is non-visualized.. The left ovary is visualized. The left ovary measures 2.4 x 1.8 x 1.6 cm. There is no left ovarian cyst or ovarian mass. There is no visualized left adnexal mass or complex lesion. There is normal arterial and normal venous vascularity. There is no fluid in the cul-de-sac. The pre void volume of the bladder was ml. The post void volume of the bladder was ml. Polycystic ovary disease: No. US/Pelvic w/ Transvaginal IMPRESSION: Normal female pelvis. Possible pelvic congestion syndrome. Electronically Signed: Michael Barros MD at 9:41 EDT ,
== END | disposition home or self-care (01) ==
PROVIDERS: PCP Family Medicine; Referring Provider Nurse Practitioner Women's Health; Visit Provider Nurse Practitioner Women's Health
DX: D25.9 Leiomyoma of uterus, unspecified (principal)
CPT/HCPCS: 76830; 76856

== ENCOUNTER → 2024-05-20 | Outpatient (CLI) | payer BC, SELFPAY ==
--- NOTE | 2024-05-20 09:30 | CYSPIN_PTH ---
PATIENT: CHANTAL TRACY LOC: [facility] U#:[id number] AGE/SX: 53/F ROOM: RE05/20/[address]: Dr. Jose Elias Reyes MD : 1970 BED: DIS: 05/20/2024 SPEC #: [id number] RECD: 05/21/24 11:32 STATUS: CHIKI HODGES #: [id number] GIULIANA: 05/20/24 09:[address]: Jose Elias Reyes DEPT: CYTOLOGY RECD BY: Mariia Uribe ENTERED: 05/21/24 11:32 SP TYPE: CYSPIN FL OTHR DR: Dr. Tucker Baum MD Tissues: Urine Procedures: Pap Stain (control) Special Stain Group II Cytospin Fluid HEADER OPERATION: Not noted PRE-OP DIAGNOSIS: Gross hematuria TISSUE SUBMITTED: Urine for cytology DIAGNOSIS CYTOLOGY Urine for cytology (cytospin): Negative for high grade urothelial carcinoma (Shari system category II). See comment. AM. 05/22/2024 COMMENT The Shari System for urine cytology diagnostic categorization was used in the evaluation of this case. CYTOLOGY STUDY Slides are reviewed. CYTOLOGY GROSS Received is 15 ml of cloudy yellow fluid labeled with the patient's name and and designated per the requisition as urine. Submitted for cytology preparation. Mr 05/21/2024 TC:5 CPT: 63713
[2024-05-20 16:17] LABS: Cytology, Body Fluid / CSF SEE PATHOLOGY REPORT
== END | disposition home or self-care (01) ==
LOC: LABSPEC 16:00
PROVIDERS: PCP Family Medicine; Referring Provider Urology; Visit Provider Urology
DX: R31.0 Gross hematuria (principal)
CPT/HCPCS: 88108; 88313

== ENCOUNTER → 2024-09-10 | Outpatient (CLI) | payer BC, SELFPAY ==
--- NOTE | 2024-09-10 14:02 | BI_ITS ---
MAMMOGRAPHY - BILATERAL SCREENING REASON FOR EXAM: Female, 54 years old. Routine annual screening examination. PERTINENT HISTORY: Non-contributory. TECHNIQUE: Digital bilateral breast [place] (3D mammographic acquisition) in the CC and MLO projections. 2-D mediolateral oblique (MLO) and craniocaudad (CC) views of both breasts were obtained. CAD: Full Field Digital Mammography with Computer Added Detection was performed. COMPARISON: Comparison is made with prior study July 24, 2023 and February 22, 2022. FINDINGS: Breast Composition: The breasts are extremely dense, which lowers the sensitivity of mammography. There are no dominant masses or suspicious calcifications. No other significant abnormalities are identified. There has been no significant change since the prior study. BI/SCRN MAMM (CAD)W/[place] BILAT IMPRESSION: Stable bilateral screening mammogram. Yearly follow-up mammogram recommended. (A) ASSESSMENT CATEGORY: BIRADS Category 1: Negative. A letter regarding these results will be sent to the patient by the facility within 30 days. Approximately 10% of breast cancers are not detected by mammography. A normal mammogram should not delay biopsy of a clinically suspicious abnormality. [id number] Electronically Signed: Luis Eduardo Guy MD at 14:45 EST ,
[2024-09-18 14:07] LABS: HPV APTIMA, High Risk Negative (Negative)
== END | disposition home or self-care (01) ==
PROVIDERS: PCP Family Medicine; Visit Provider Nurse Practitioner Women's Health
DX: Z12.31 Encounter for screening mammogram for malignant neoplasm of breast (principal)
CPT/HCPCS: 77063; 77067; 87624; 88175; G0145

== ENCOUNTER → 2024-12-10 | Outpatient (CLI) | payer BC, SELFPAY ==
[2024-12-10 19:10] LABS: Anion Gap 13 (5-15); BUN 11 mg/dL (4-19); BUN/Creat Ratio 12.8 RATIO (10-20); Calcium,Total 10.1 mg/dL (7.6-11.0); Carbon Dioxide 24.5 mmol/L (21.0-32.0); Chloride 103 mmol/L (98-108); Cholesterol 170 mg/dL (<=200); Creatinine, Serum 0.84 mg/dL (0.70-1.20); EST Glomerular Filtration Rate 81 (>60); Glucose 80 mg/dL (70-99); High Density Lipoprotein 100 mg/dL; Low Density Lipoprotein Calc. 56 mg/dL; Potassium 3.6 mmol/L (3.3-5.1); Sodium Level 141 mmol/L (133-145); Triglycerides 70 mg/dL; Very Low Density Lipoprotein 14 mg/dL (5-40); cholesterol:hdl ratio screen 1.71
== END | disposition home or self-care (01) ==
PROVIDERS: PCP Family Medicine; Visit Provider Nurse Practitioner Family
DX: Z13.220 Encounter for screening for lipoid disorders (principal); Z13.1 Encounter for screening for diabetes mellitus
CPT/HCPCS: 36415; 80048; 80061